=== PATIENT | male | born 1935 | race Caucasian/White ===

== ENCOUNTER 2017-12-12 20:44 | Emergency (ER) | payer OTHER, MEDICARE ==
--- NOTE | 2017-12-12 20:49 | PDOC ---
History of Present Illness - General History Source: Patient Exam Limitations: No Limitations - History of Present Illness Initial Comments: 12/12/17 21:40 The patient is an 82-year-old male with past medical history significant for quadruple bypass surgery, kidney issues, and hernia presents to the emergency department s/p walking into a glass. The patient states he was at [facility] when he ambulated into a clean glass at 6:00 pm, denies LOC. The patient states he sustained an injury to the L. lateral eye, without bleeding. The patient states he was anxious following the incident and had a delon to calm himself. The patient reports after eating 2 pizzas, he tried to go to the urgent care, but they were closed. The patient reports secondary to his age he was concerned and wanted to rule out further complications. Denies nausea, vomiting, chest pain, SOB, numbness, tingling or loss of sensation. Allergies: NKA Social history: Social use of alcohol. No present use of tobacco, alcohol or recreational drugs. PCP: None reported <Ruth Renteria - Last Filed: 12/12/17 22:18> <Lima Abebe - Last Filed: 12/13/17 03:46> - General Chief Complaint: Injury Stated Complaint: WALKED INTO A DOOR/ABRASION ON HEAD Time Seen by Provider: 12/12/17 20:49 Past History - Past Medical History Cardiac Disorders: Yes (quadruple bypass surgery) Other medical history: kidney issues and hernia - Surgical History Cardiac Surgery: Yes (quadruple bypass surgery) GI Surgery: Yes (Hernia) <Ruth Renteria - Last Filed: 12/12/17 22:18> <Lima Abebe - Last Filed: 12/13/17 03:46> - Past Medical History Allergies/Adverse Reactions: Allergies Allergy/AdvReac Type Severity Reaction Status Date / Time No Known Allergies Allergy Verified 12/12/17 20:46 Home Medications: Ambulatory Orders Aspirin 81 mg PO DAILY 12/12/17 Metoprolol Succinate [Toprol Xl] 25 mg PO DAILY 12/12/17 Potassium Citrate [Potassium Citrate ER] 0 meq PO DAILY 12/12/17 Simvastatin 10 mg PO HS 12/12/17 Tamsulosin HCl [Flomax] 0.4 mg PO DAILY 12/12/17 Review of Systems - Review of Systems Comments:: 12/12/17 21:49 CONSTITUTIONAL: Absent: fever, no chills, no fatigue EYES: (+) Injury near the l. Eye Absent: visual changes, diplopia ENT: Absent: ear pain, no sore throat CARDIOVASCULAR: Absent: chest pain, no palpitations RESPIRATORY: Absent: cough, no SOB GI: Absent: abdominal pain, no nausea, no vomiting, no constipation, no diarrhea GENITOURINARY: Absent: dysuria, no frequency, no hematuria MUSKULOSKELETAL: Absent: back pain, no arthralgia, no myalgia SKIN: Absent: rash NEURO: Absent: headache <Ruth Renteria - Last Filed: 12/12/17 22:18> *Physical Exam - Vital Signs Last Vital Signs Temp Pulse Resp BP Pulse Ox 97.5 F L 60 16 150/63 97 12/12/17 20:52 12/12/17 20:52 12/12/17 20:52 12/12/17 20:52 12/12/17 20:52 - Physical Exam Comments: 12/12/17 22:09 GENERAL: The patient is awake, alert, and fully oriented, in no acute distress. HEAD: (+) 0.5 cm abrasion to the lateral aspect of the L. periorbital region, with faint ecchymosis below the abrasion no tenderness or masses palpated. EOMI. NEUROLOGICAL: Normal speech, normal gait. (+) motor function intact upper and lower extremity, finger to nose cerebellar intact. Cranial nerve grossly intact. Pupils and 2mm equal and reactive. SKIN: Warm, Dry, normal turgor, no rashes or lesions noted. <Ruth Renteria - Last Filed: 12/12/17 22:18> Progress Note - Progress Note Progress Note: Documentation has been prepared under my direction and personally reviewed by me in its entirety. I attest that this documented accurately reflects all work, treatment, procedures and medical decision making performed by me. <Lima Abebe - Last Filed: 12/13/17 03:46> Medical Decision Making - Medical Decision Making As noted above, this 82-year-old man presents with history of accidentally walking into a glass door in a local restaurant. Patient had no loss of consciousness and sustained a small abrasion/contusion of the lateral aspect of the left periorbital area. No other injury sustained and patient has no complaints. Patient presents because he is concerned about serious head injury in older people. No previous history of head injury in this patient. He is on daily aspirin regimen. Exam as noted Noncontrast head CT performed: Preliminary interpretation by Imaging automation qa analyst- Other than some diffuse atrophy, no abnormality seen. Specifically, no contusion/bleed/fractures evident. Left periorbital wound cleansed using sterile normal saline: Minimal abrasion with surrounding small area of contusion. Bacitracin ointment applied to the area. Patient will be discharged with instructions to keep his head elevated tonight and to avoid strenuous mental or physical activity tomorrow since he has sustained a closed head injury. He should return to the emergency room if he experiences worsening headache or develops nausea/vomiting/T. Patient presented with his son and lives at home with his . He will be able to be monitored overnight and family will bring him back as needed. He should follow- up with his general doctor within the next 3-4 days <Lima Abebe - Last Filed: 12/13/17 03:46> *DC/Admit/Observation/Transfer - Attestations Scribe Attestion: 12/12/17 Documentation prepared by Ruth Renteria, acting as medical office technologist for Lima Abebe MD. . <Ruth Renteria - Last Filed: 12/12/17 22:18> <Lima Abebe - Last Filed: 12/13/17 03:46> Diagnosis at time of Disposition: Periorbital contusion of left eye Qualifiers: Encounter type: initial encounter Qualified Code(s): S05.12XA - Contusion of eyeball and orbital tissues, left eye, initial encounter Closed head injury Qualifiers: Encounter type: initial encounter Qualified Code(s): S09.90XA - Unspecified injury of head, initial encounter - Discharge Dispostion Disposition: HOME Condition at time of disposition: Stable - Patient Instructions Printed Discharge Instructions: DI for Closed Head Injury Additional Instructions: Keep head elevated on an extra pillow tonight Avoid strenuous physical or mental activity for the next 24 hours Tylenol as needed for pain; avoid ibuprofen/naproxen for the next 48 hours Follow-up with your PMD within the next 3-4 days, especially if you have increase in pain Return to ER immediately if you have severe headache/nausea or vomiting/ lightheadedness
[2017-12-12 21:46] VITALS: BP 150/63; PULSE 60; TEMP 97.5; BMI 22.9
== END 2017-12-12 22:35 | disposition home or self-care (01) ==
LOC: FER 20:44
DX: S05.12XA Contusion of eyeball and orbital tissues, left eye, initial encounter (principal); S09.90XA Unspecified injury of head, initial encounter; W22.09XA Striking against other stationary object, initial encounter; Y93.89 Activity, other specified; Y92.89 Other specified places as the place of occurrence of the external cause
CPT/HCPCS: 70450-TC; 99281-25